=== PATIENT | male | born 1960 | race Caucasian/White ===

== ENCOUNTER 2023-08-02 15:01 | Inpatient (IN) | payer OTHER, SELFPAY ==
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
[2023-08-02] MEDS ORDERED: SODIUM CHLORIDE 0.9% 10ML INJ IV PRN (16:42)
[2023-08-02] MEDS: METOPROLOL TAR 25 MG TAB PO SCH (18:27)
[2023-08-02] MEDS: NA CHLORIDE 0.9% 1,000 ML IV SCH (18:27)
[2023-08-02] MEDS: lisinopriL 5 MG TAB PO SCH (20:51)
[2023-08-02] MEDS: PANTOPRAZOLE 40 MG INJ IVP SCH (20:51)
[2023-08-02] MEDS: ROSUVASTATIN 5 MG TAB PO SCH (20:52)
[2023-08-02] MEDS ORDERED: ATORVASTATIN 10 MG TAB PO SCH (21:00)
[2023-08-02 22:39] LABS: Troponin High Sensitivity 122256.5 pg/mL (<58.9)
[2023-08-03] MEDS: ASPIRIN EC 81 MG TAB PO ONE (04:11)
[2023-08-03] MEDS: CLOPIDOGREL 75 MG TABLET ONE (04:11)
[2023-08-03] MEDS: CLOPIDOGREL 75 MG TABLET PO SCH (05:13)
[2023-08-03] MEDS: ASPIRIN EC 81 MG TAB PO SCH (05:14)
[2023-08-03 06:27] LABS: Absolute Lymphocytes (CBC) 1.3 K/uL (0.7-4.9); Hematocrit 46.1 % (39.6-49.0); Lymphocytes % 15.1 % (15.3-44.8); MCV 73.3 fL (80-100); MPV 7.8 fL (7.6-11.3); Platelets 299 thou/uL (152-406); RBC Red Blood Cell Count 6.29 M/uL (4.33-5.43)
[2023-08-03 06:43] LABS: Protime INR 1.07
[2023-08-03] MEDS ORDERED: HEPARIN/D5W 25,000 UNIT/500 ML BAG IV SCH (07:00)
[2023-08-03 07:07] LABS: Albumin 3.2 g/dL (3.4-5.0); Magnesium 2.3 mg/dL (1.6-2.4); Potassium 4.2 mEq/L (3.5-5.1); Protein, Total 6.9 g/dL (6.4-8.2); Troponin High Sensitivity 80731.3 pg/mL (<58.9)
--- NOTE | 2023-08-03 07:36 | P.PN ---
Subjective Date of Service: 08/03/23 Primary Care Provider: Dr. Spivey Chief Complaint: chest pain Subjective: No C/O voiced, Other (states he is feeling a lot better.) <Cisco[place]ina - Last Filed: 08/03/23 07:32> Date of Service: 08/03/23 <Glen Garcia - Last Filed: 08/03/23 21:41> Review of Systems 10-point ROS is otherwise unremarkable General: Unremarkable Eyes: Unremarkable ENT: Unremarkable Respiratory: Unremarkable Cardiovascular: As per HPI Gastrointestinal: Unremarkable Genitourinary: Unremarkable Musculoskeletal: Unremarkable Integumentary: Unremarkable Neurological: Unremarkable <PeckCarolina - Last Filed: 08/03/23 07:32> Physical Examination - Vital Signs Temperature: 97.9 F Blood Pressure: 124/79 Pulse: 64 Respirations: 18 Pulse Ox (%): 97 - Physical Exam General: Alert, In no apparent distress, Oriented x3 HEENT: Atraumatic, Normocephalic, PERRLA Neck: Supple, 2+ carotid pulse no bruit, JVD not distended Respiratory: Clear to auscultation bilaterally, Normal air movement Cardiovascular: No edema, Normal pulses, Regular rate/rhythm, Normal S1 S2 Capillary refill: <2 Seconds Gastrointestinal: Normal bowel sounds Musculoskeletal: No clubbing Integumentary: No rashes Neurological: Normal speech Lymphatics: No axilla or inguinal lymphadenopathy External genitalia: Deferred Rectal: Deferred - Studies Laboratory Data (last 24 hrs) 08/03/23 08/03/23 08/03/23 06:15 06:15 06:15 WBC 8.40 Hgb 14.7 Hct 46.1 Plt Count 299 PT 11.8 INR 1.07 APTT 31.8 Sodium 137 Potassium 4.2 BUN 12 Creatinine 1.20 Glucose 115 H Magnesium 2.3 Total Bilirubin 1.0 AST 138 H ALT 52 Alkaline Phosphatase 43 L Triglycerides 162 H Cholesterol 173 HDL Cholesterol 32 L Cholesterol/HDL Ratio 5.41 Lipase 08/02/23 21:39 WBC Hgb Hct Plt Count PT INR APTT Sodium Potassium BUN Creatinine Glucose Magnesium Total Bilirubin AST ALT Alkaline Phosphatase Triglycerides Cholesterol HDL Cholesterol Cholesterol/HDL Ratio Lipase 52 <CicsoCarolina - Last Filed: 08/03/23 07:32> - Studies Laboratory Data (last 24 hrs) 08/03/23 08/03/23 08/03/23 17:30 06:15 06:15 WBC Hgb Hct Plt Count PT 11.8 INR 1.07 APTT Cancelled 31.8 Sodium 137 Potassium 4.2 BUN 12 Creatinine 1.20 Glucose 115 H Magnesium 2.3 Total Bilirubin 1.0 AST 138 H ALT 52 Alkaline Phosphatase 43 L Triglycerides 162 H Cholesterol 173 HDL Cholesterol 32 L Cholesterol/HDL Ratio 5.41 Lipase 08/03/23 08/02/23 06:15 21:39 WBC 8.40 Hgb 14.7 Hct 46.1 Plt Count 299 PT INR APTT Sodium Potassium BUN Creatinine Glucose Magnesium Total Bilirubin AST ALT Alkaline Phosphatase Triglycerides Cholesterol HDL Cholesterol Cholesterol/HDL Ratio Lipase 52 <Glen Garcia - Last Filed: 08/03/23 21:41> Assessment And Plan - Plan Angina: > Non Stemi Pain relief, plavix, aspirin, rec'd Lovenox at [place]. Cardiac cath in am, consult Dr. Polo Tinoco -> 122,256 at 2100 -> 80,731 with unchanged EKG, no pain at 0600 Begin Heparin drip, no bolus, laboratory mechanic helper today Hypertension: Metoprolol, lisinopril, VS per protocol Hyperlipidemia: Atorvastatin 10mg po q HS GERD: Gallbladder US, Lipase evaluation, Protonix <Carolina Peck - Last Filed: 08/03/23 07:32> - Plan Pt seen and examined. I agree with the note by the WEEDER THINNER. Cardiology will do Cardiac cath today. continue heparin drip <Glen Garcia - Last Filed: 08/03/23 21:41>
[2023-08-03] MEDS: NA CHLORIDE 0.9% 500 ML ONE (08:12)
[2023-08-03] MEDS ORDERED: HEPA 1000U/500MLS 2,000 UNIT/1,000 ML BAG IV ONE (08:17)
[2023-08-03] MEDS ORDERED: LIDOCAINE 1% 20 ML MDV ONE (08:18)
[2023-08-03] MEDS ORDERED: HEPARIN 5000 UNIT/ML 1 ML VIAL ONE (08:18)
[2023-08-03] MEDS ORDERED: VERAPAMIL HCL 10 MG/4 ML VIAL IV ONE (08:18)
[2023-08-03] MEDS ORDERED: ATROPINE SULF 1 MG/10 ML SYR IV ONE (08:18)
[2023-08-03] MEDS ORDERED: FENTANYL CITR 100 MCG/2 ML ONE (08:18)
[2023-08-03] MEDS ORDERED: MIDAZOLAM HCL 2 MG/2 ML INJ ONE (08:18)
[2023-08-03] MEDS ORDERED: ASPIRIN 325 MG TAB ONE (08:19)
[2023-08-03] MEDS ORDERED: TICAGRELOR 90 MG TABLET PO ONE (08:19)
[2023-08-03] MEDS ORDERED: CLOPIDOGREL 75 MG TABLET ONE (08:19)
[2023-08-03] MEDS ORDERED: HEPARIN 10,000 UNIT/10 ML VIAL IV ONE (08:19)
[2023-08-03 08:37] LABS: Blood Morphology Comment NOTED (NOT SEEN); Platelet Estimate ADEQ; White Blood Cell Scan OK (OK)
[2023-08-03 08:38] LABS: Anisocytosis 1+
[2023-08-03 11:39] VITALS: O2SAT 98
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
--- NOTE | 2023-08-03 12:16 | RAD REPORT ---
EXAM DESCRIPTION: Abdomen Exam Limited CLINICAL HISTORY: 62 years Male chest pain COMPARISON: None TECHNIQUE: Real-time sonography of the right upper abdomen was performed. FINDINGS: Gallbladder is visualized with no evidence for gallstones. Gallbladder wall measures 1 mm. Common bile duct measures 4 mm. No fluid is seen adjacent to the gallbladder. Heterogeneous echogenicity involving the liver indicating fatty change. IMPRESSION: No evidence for gallstones. Suspected fatty change involving the liver. Electronically signed by: eDedee Villanueva MD 08/03/2023 12:13 AM DIGITAL TRAFFIC COORDINATOR Due to temporary technical issues with the PACS/Fluency reporting system, reports are being signed by the in house radiologist without review as a courtesy to ensure prompt reporting. The interpreting r adiologist is fully responsible for the content of the report.
[2023-08-03] MEDS: HEPARIN/D5W 25,000 UNIT/500 ML BAG IV SCH (13:15)
[2023-08-03 13:33] VITALS: BMI 26.3
[2023-08-03 13:57] VITALS: BP 126/67; TEMP 97.8
--- NOTE | 2023-08-03 15:21 | P.DS ---
Admission Date: 08/03/23 Discharge Date: 08/03/23 Primary Care Provider: Dr. Spivey Disposition: TRANSFER TO [facility] Discharge Condition: GOOD Reason for Admission: chest pain Brief History of Present Illness: Mr. Cunningham is a 62-year-old male patient who came in today from the [place] emergency department as a direct admit after evaluation for chest pain. He believed his chest pain to be more of a GERD type pain but was concerned enough to come to the emergency room because it did not resolve after taking Tums. Mr. Cunningham has never had a history of hypertension however does have hyperlipidemia, utilizes TRT therapy, and has a history of GERD. Mr. Cunningham was at the gym working out mildly aggressively when he began to experience bilateral substernal pain. He denied shortness of breath at the time however did have an episode of dizziness which he attributed to anxiety and being post workout. On arrival to [place] he describes chest pain of 7 out of 10, currently rates his pain at 0.5 on a 0-to-10 scale. Dizziness has resolved. Labs, chest x-ray, and EKG at [place] appear within normal limits. Dr. Osorio spoke with Dr. Cuellar and the plan is to do a cardiac cath in the morning. Vital Signs/Physical Exam: Temp Pulse Resp BP Pulse Ox 97.8 F 69 18 126/67 95 08/03/23 12:00 08/03/23 12:00 08/03/23 12:00 08/03/23 12:00 08/03/23 12:00 Laboratory Data at Discharge: WBC 8.40 thou/uL (4.3-10.9) 08/03/23 06:15 Hgb 14.7 g/dL (13.6-17.9) 08/03/23 06:15 Hct 46.1 % (39.6-49.0) 08/03/23 06:15 Plt Count 299 thou/uL (152-406) 08/03/23 06:15 PT 11.8 SECONDS (9.5-12.5) 08/03/23 06:15 INR 1.07 08/03/23 06:15 APTT 31.8 SECONDS (24.3-36.9) 08/03/23 06:15 Sodium 137 mEq/L (136-145) 08/03/23 06:15 Potassium 4.2 mEq/L (3.5-5.1) 08/03/23 06:15 BUN 12 mg/dL (7-18) 08/03/23 06:15 Creatinine 1.20 mg/dL (0.70-1.30) 08/03/23 06:15 Glucose 115 mg/dL (74-106) H 08/03/23 06:15 Magnesium 2.3 mg/dL (1.6-2.4) 08/03/23 06:15 Total Bilirubin 1.0 mg/dL (0.2-1.0) 08/03/23 06:15 AST 138 U/L (15-37) H 08/03/23 06:15 ALT 52 U/L (16-61) 08/03/23 06:15 Alkaline Phosphatase 43 U/L (45-117) L 08/03/23 06:15 Triglycerides 162 mg/dL (<150) H 08/03/23 06:15 Cholesterol 173 mg/dL (<200) 08/03/23 06:15 HDL Cholesterol 32 mg/dL (40-60) L 08/03/23 06:15 Cholesterol/HDL Ratio 5.41 08/03/23 06:15 Lipase 52 U/L (13-75) 08/02/23 21:39 Home Medications: Aspirin [Aspirin EC 81 MG] 81 mg PO 08/02/23 Multivitamin [Multiple Vitamins] 1 each PO 08/02/23 Rosuvastatin [Crestor*] 1 tab PO DAILY AT SUPPER 08/02/23 Clopidogrel Bisulfate [Plavix*] 75 mg PO DAILY 90 Days #90 tab 08/03/23 Metoprolol Tartrate [Lopressor*] 25 mg PO BID 6AM 6PM 30 Days #60 tab 08/03/23 lisinopriL [Prinivil*] 5 mg PO BEDTIME 90 Days #90 tab 08/03/23 New Medications: Metoprolol Tartrate [Lopressor*] 25 mg PO BID 6AM 6PM 30 Days #60 tab Clopidogrel Bisulfate [Plavix*] 75 mg PO DAILY 90 Days #90 tab lisinopriL [Prinivil*] 5 mg PO BEDTIME 90 Days #90 tab Physician Discharge Instructions: Transfer to [facility] for CABG. Continue ad neil activity. Take home meds as prescribed. Follow up with Cardiology and PCP within 1 week of discharge. Diet: AHA Activity: Ad neil
--- NOTE | 2023-08-03 18:58 | OP ---
Date of Procedure: 08/03/2023 Surgeon: THA OLIVA Procedure Performed: 1.Selective coronary angiogram. 2.Left heart catheterization. Indication: [id number] myocardial infarction. Access: Right radial artery 6-Kyrgyz, closed with TR band. Complications: None. Bleeding: Less than 50 mL. Anesthesia: Total sedation time was 30 minutes. Description Of Procedure: After risks, benefits, alternatives were explained, the patient agreed to proceed and signed informed consent. The patient was brought into cardiac catheterization laboratory , prepped and draped in usual sterile fashion. Then, I accessed right radial artery using pediatric micropuncture kit, placed 6-Kyrgyz slender sheath, took 5-Kyr[place]z [place] 4 catheter into the aortic yadira t and crossed the aortic valve and measured LVEDP pullback. Did not record any significant gradient, then engaged left main, took standard views, engaged RCA, took standard views and removed the cathet er and sheath, placed TR band with good hemostasis. Findings: 1.Left main: Normal. 2.LAD: Proximal segment normal. In the mid segment, there is 70% stenosis and diagonal 2 branch jordan s proximal 50% stenosis. Diagonal 1 appears normal. Rest of the LAD is normal. 3.Left circumflex appears normal, but the OM branch ostial to proximal there is 80% stenosis. 4.RCA 100% occluded proximally. There are collaterals coming from the LAD and left circumflex. 5.LVEDP is normal at 8 mmHg. Conclusion: Severe multivessel coronary artery disease. Recommendation: Transfer for coronary artery bypass surgery. /MODL Voice ID: [id number] Report ID: [id number]
--- NOTE | 2023-08-05 14:45 | EKG ---
Test Date: 2023-08-03 Test Time: 07:22:55 Account Technician: SPENCER MEASUREMENT RESULTS: Intervals: Rate: 63 MS: 170 QRSD: 108 QT: 406 QTc: 415 [place]: P: 70 MS: 170 QRS: -49 T: -52 INTERPRETIVE STATEMENTS: Normal sinus rhythm Left anterior fascicular block Minimal voltage criteria for LVH, may be normal variant ST & T wave abnormality, consider inferior ischemia Abnormal ECG No previous ECG available for comparison Electronically Signed On 08-05-23 14:42:08 GROCERY ASSOCIATE by Crow Cuellar
== END 2023-08-03 17:24 | disposition short-term general hospital (02) | DRG 282 ==
LOC: 2ND 15:01 → OBSVTOIN 08-03 12:52
PROVIDERS: ADMIT Hospitalist; ATTEND Hospitalist
PROC: 4A023N7 Measurement of Cardiac Sampling and Pressure, Left Heart, Percutaneous Approach (ICD-10-PCS; principal; 2023-08-03)
PROC: B2111ZZ Fluoroscopy of Multiple Coronary Arteries using Low Osmolar Contrast (ICD-10-PCS; 2023-08-03)
DX: I21.4 Non-ST elevation (NSTEMI) myocardial infarction (principal); I10 Essential (primary) hypertension; E78.5 Hyperlipidemia, unspecified; I20.9 Angina pectoris, unspecified; K21.9 Gastro-esophageal reflux disease without esophagitis; F41.9 Anxiety disorder, unspecified; Z79.82 Long term (current) use of aspirin; Z79.02 Long term (current) use of antithrombotics/antiplatelets; Z79.899 Other long term (current) drug therapy
CPT/HCPCS: 36415; 76705; 76937; 80053; 80061; 83690; 83735; 84484; 85025; 85610; 85730; 93005; 93458; 94760; 99152; 99153; C1893; C9113; G0378; G0379; J0461; J1644; J2001; J2250; J3010; J7030; J7040; Q9966